=== PATIENT | female | born 1990 | race African-American/Black ===

== ENCOUNTER 2019-08-06 18:43 | Emergency (ER) | payer SELFPAY ==
[~2019-08-06] VITALS: Ht 170 cm; Wt 86.0 kg
--- NOTE | 2019-08-06 19:09 | NUR ---
Here with report of lower abdominal pain with intermittent bleeding. Was seen at the clinic on Monday c/o occasional dizziness. She reports heavy period in early June. She had positive test. taken to room 6
[2019-08-06 19:42] LABS: BILIRUBIN,URINE NEGATIVE (NEGATIVE); CLARITY,URINE CLEAR; COLOR,URINE YELLOW; GLUCOSE, URINE (UA) NEGATIVE (NEGATIVE); KETONES,URINE NEGATIVE (NEGATIVE); LEUKOCYTE ESTERASE ,URINE NEGATIVE (NEGATIVE); NITRITE,URINE NEGATIVE (NEGATIVE); PROTEIN,URINE NEGATIVE (NEGATIVE)
[2019-08-06 19:49] LABS: BACTERIA,URINE TRACE /HPF; RBC,URINE 0-2 /HPF
[2019-08-06 19:52] LABS: BASOPHILS % (AUTO) 0 % (0-10); EOSINOPHILS # (AUTO) 0.1 10^3/uL (0.0-0.3); EOSINOPHILS % (AUTO) 1 % (0-10); HEMATOCRIT 33 % (35-52); HEMOGLOBIN 10.8 G/DL (11.5-16.0); LYMPHOCYTES # (AUTO) 2.3 X 10^3 (1.0-4.0); LYMPHOCYTES % (AUTO) 25 % (12-44); MEAN CORPUSCULAR HEMOGLOBIN 28 PG (25-34); MEAN CORPUSCULAR HGB CONC 33 G/DL (32-36); MEAN CORPUSCULAR VOLUME 86 FL (80-99); MEAN PLATELET VOLUME 10.4 FL (7.4-10.4); MONOCYTES # (AUTO) 0.6 X 10^3 (0.0-1.0); MONOCYTES % (AUTO) 6 % (0-12); NEUTROPHILS # (AUTO) 6.3 X 10^3 (1.8-7.8); NEUTROPHILS % (AUTO) 67 % (42-75); PLATELET COUNT 273 10^3/uL (130-400); RED CELL DISTRIBUTION WIDTH 14.4 % (10.0-14.5); WHITE BLOOD COUNT 9.4 10^3/uL (4.3-11.0)
[2019-08-06 20:05] LABS: ALANINE AMINOTRANSFERASE 8 U/L (0-55); ALBUMIN 3.9 GM/DL (3.2-4.5); ALKALINE PHOSPHATASE 52 U/L (40-136); BILIRUBIN,TOTAL 0.2 MG/DL (0.1-1.0); BUN/CREATININE RATIO 17; CALCIUM 9.2 MG/DL (8.5-10.1); CARBON DIOXIDE 22 MMOL/L (21-32); CHLORIDE 105 MMOL/L (98-107); CREATININE SERUM 0.72 MG/DL (0.60-1.30); GFR ESTIMATED > 60; GLUCOSE 81 MG/DL (70-105); POTASSIUM 3.5 MMOL/L (3.6-5.0); SODIUM 136 MMOL/L (135-145); TOTAL PROTEIN 7.2 GM/DL (6.4-8.2)
[2019-08-06] MEDS ORDERED: LACTATED RINGERS 1,000 ML IV ONE (20:10)
--- NOTE | 2019-08-06 20:21 | ED GU-Female ---
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 LMP 07/03/2019. PT STATES HAS STARTED BLEEDING FOR A COUPLE DAYS. PT RATES PAIN 10/10 PAIN IN R LOWER ABD AND RECTAL AREA. CO OF NAUSEA. Nursing Sepsis Screen: No Definite Risk Source: patient Exam Limitations: no limitations History of Present Illness Date Seen by Provider: Aug 06, 2019 Time Seen by Provider: 19:55 Initial Comments Here with report of lower abdominal pain with intermittent bleeding. Was seen at the clinic on Monday and had vaginal ultrasound done after positive test. No structure noted and no ectopic noted at that time although they believe early for dates at that point. She's had intermittent dizziness over the last month. She did have extended and heavier period in early June. She had positive test at the end of June. She notes that she had dizziness that was actually occurring at the end of May and she didn't think much about that. Denies nausea or vomiting. Currently is hungry. Timing/Duration: week, getting worse Severity/Quality: mild, other Location: RLQ, suprapubic Radiation: back, right flank [facility] [place] History: less than 2 months ago Associated Symptoms: No dysuria, No fever/chills, No nausea/vomiting Allergies and Home Medications Allergies Coded Allergies: No Known Drug Allergies (Unverified , 08/06/19) Home Medications No Active Prescriptions or Reported Meds Patient Home Medication List Home Medication List Reviewed: Yes Review of Systems Review of Systems Constitutional: see HPI; No chills, No fever EENTM: no symptoms reported Respiratory: no symptoms reported Cardiovascular: no symptoms reported Gastrointestinal: abdominal pain; No nausea, No vomiting Genitourinary: no symptoms reported : Yes Musculoskeletal: no symptoms reported Psychiatric/Neurological: Denies Weakness; Other (dizziness) All Other Systemes Reviewed Negative Unless Noted: Yes Past Xnouwnl-Thjlld-Gfrofl Hx Past Med/Social Hx: Reviewed Nursing Past Med/Soc Hx Patient Social History Alcohol Use: Denies Use Recreational Drug Use: No Smoking Status: Never a Smoker Recent Foreign Travel: No Contact w/Someone Who Travel: No Recent Infectious Disease Expo: No Recent Hopitalizations: No Physical Abuse: No Sexual Abuse: No Seasonal Allergies Seasonal Allergies: No Past Medical History Surgeries: Yes (OVARIAN SURG) Respiratory: No Cardiac: No Neurological: No : Yes Last Menstrual Period: Jun 02, 2019 Hx : 2 Hx Para: 1 Hx Total # of Abortions (Sp): 0 Genitourinary: No Gastrointestinal: No Musculoskeletal: No Endocrine: No HEENT: No Cancer: No Psychosocial: No Family Medical History Reviewed Nursing Family Hx No Pertinent Family Hx Physical Exam Vital Signs Vital Signs - First Documented 08/06/19 18:52 Temp 36.5 Pulse 83 Resp 20 B/P (MAP) 150/97 (114) Capillary Refill : Less Than 3 Seconds Height, Weight, BMI Height: '" Weight: lbs. oz. kg; 29.00 BMI Method: General Appearance: WD/WN, no apparent distress Neck: full range of motion, supple Cardiovascular: regular rate, rhythm, no murmur Respiratory: lungs clear, normal breath sounds Gastrointestinal: soft, tenderness (mild suprapubic) Back: normal inspection, no CVA tenderness, no vertebral tenderness Extremities: non-tender, normal inspection Neurologic/Psychiatric: alert, oriented x 3 Skin: normal color, warm/dry Progress/Results/Core Measures Suspected Sepsis Recent Fever Within 48 Hours: No Infection Criteria Present: None New/Unexplained Altered Menta: No Sepsis Screen: No Definite Risk SIRS Temperature: Pulse: 83 Respiratory Rate: 20 Laboratory Tests 08/06/19 19:35: White Blood Count 9.4 Blood Pressure 150 /97 Mean: 114 Laboratory Tests 08/06/19 19:35: Creatinine 0.72, Platelet Count 273, Total Bilirubin 0.2 Results/Orders Lab Results Laboratory Tests Test 08/06/19 19:09 08/06/19 19:35 Range/Units Urine Color YELLOW Urine Clarity CLEAR Urine pH 7.0 5-9 Urine Specific Energy 1.020 1.016-1.022 Urine Protein NEGATIVE NEGATIVE Urine Glucose (UA) NEGATIVE NEGATIVE Urine Ketones NEGATIVE NEGATIVE Urine Nitrite NEGATIVE NEGATIVE Urine Bilirubin NEGATIVE NEGATIVE Urine Urobilinogen 0.2 < = 1.0 MG/DL Urine Leukocyte Esterase NEGATIVE NEGATIVE Urine RBC (Auto) TRACE-I NEGATIVE Urine RBC 0-2 /HPF Urine WBC NONE /HPF Urine Squamous Epithelial Cells 5-10 /HPF Urine Crystals NONE /LPF Urine Bacteria TRACE /HPF Urine Casts NONE /LPF Urine Mucus MODERATE H /LPF Urine Culture Indicated NO White Blood Count 9.4 4.3-11.0 10^3/uL Red Blood Count 3.80 L 4.35-5.85 10^6/uL Hemoglobin 10.8 L 11.5-16.0 G/DL Hematocrit 33 L 35-52 % Mean Corpuscular Volume 86 80-99 FL Mean Corpuscular Hemoglobin 28 25-34 PG Mean Corpuscular Hemoglobin Concent 33 32-36 G/DL Red Cell Distribution Width 14.4 10.0-14.5 % Platelet Count 273 130-400 10^3/uL Mean Platelet Volume 10.4 7.4-10.4 FL Neutrophils (%) (Auto) 67 42-75 % Lymphocytes (%) (Auto) 25 12-44 % Monocytes (%) (Auto) 6 0-12 % Eosinophils (%) (Auto) 1 0-10 % Basophils (%) (Auto) 0 0-10 % Neutrophils # (Auto) 6.3 1.8-7.8 X 10^3 Lymphocytes # (Auto) 2.3 1.0-4.0 X 10^3 Monocytes # (Auto) 0.6 0.0-1.0 X 10^3 Eosinophils # (Auto) 0.1 0.0-0.3 10^3/uL Basophils # (Auto) 0.0 0.0-0.1 10^3/uL Sodium Level 136 135-145 MMOL/L Potassium Level 3.5 L 3.6-5.0 MMOL/L Chloride Level 105 98-107 MMOL/L Carbon Dioxide Level 22 21-32 MMOL/L Anion Gap 9 5-14 MMOL/L Blood Urea Nitrogen 12 7-18 MG/DL Creatinine 0.72 0.60-1.30 MG/DL Estimat Glomerular Filtration Rate > 60 BUN/Creatinine Ratio 17 Glucose Level 81 70-105 MG/DL Calcium Level 9.2 8.5-10.1 MG/DL Corrected Calcium 9.3 8.5-10.1 MG/DL Total Bilirubin 0.2 0.1-1.0 MG/DL Aspartate Amino Transf (AST/SGOT) 13 5-34 U/L Alanine Aminotransferase (ALT/SGPT) 8 0-55 U/L Alkaline Phosphatase 52 40-136 U/L Total Protein 7.2 6.4-8.2 GM/DL Albumin 3.9 3.2-4.5 GM/DL Human Chorionic Gonadotropin, Quant [id number] H <5 MIU/ML My Orders Orders - TATY,NIK D MD Cbc With Automated Diff (08/06/19 19:35) Hcg,Quantitative (08/06/19 19:35) Ed Iv/Invasive Line Start (08/06/19 19:35) Comprehensive Metabolic Panel (08/06/19 19:35) Ua Culture If Indicated (08/06/19 19:35) Ed Iv/Invasive Line Start (08/06/19 20:10) Lactated Ringers (Lr 1000 Ml Iv Solution (08/06/19 20:10) Abo Rh Type (08/06/19 21:20) Medications Given in ED Current Medications Medications Dose Ordered Sig/Ervin Route Start Time Stop Time Status Last Admin Dose Admin Lactated Ringer's 1,000 ml @ 0 mls/hr Q0M ONCE IV 08/06/19 20:10 08/06/19 20:11 DC 08/06/19 20:35 1,000 MLS/HR Vital Signs/I&O 08/06/19 18:52 Temp 36.5 Pulse 83 Resp 20 B/P (MAP) 150/97 (114) Capillary Refill : Less Than 3 Seconds Blood Pressure Mean: 114 Progress Note : Progress Note Seen and evaluated. IV, labs and UA ordered. Bedside ultrasound done. I did not see an obvious pole but uterus was somewhat enlarged. Question enlarged structure on the right periuterine area. Pending quantitative hCG. 2105: Quantitative hCG greater than 65,000. I did discuss the case with Dr. Lara and we found that she is following with Dr. Kelley. I did call and make contact with him. I did discuss my concerns related to the ultrasound and hCG findings. He would like to see the patient in the office first thing in the morning where they will do transvaginal ultrasound. Patient is not in significant pain and in fact she is hungry currently. She did get 1 L of LR. She is not dizzy currently. I do believe she is safe to go home with close follow-up at this point with the understanding that she will return for any worsening. Patient agrees. Discharged home with return precautions. Patient verbalize understanding instructions and agreement with plan. Patient's blood type is O+. Departure Impression Primary Impression: Abdominal pain of right lower quadrant during , antepartum Additional Impression: Threatened miscarriage Disposition: HOME, SELF-CARE Condition: Stable Departure-Patient Inst. Decision time for Depature: 21:18 Referrals: NO,LOCAL PHYSICIAN (PCP) Primary Care Physician Patient Instructions: Acute Abdomen (Belly Pain), Adult (DC), Threatened Miscarriage (DC) Add. Discharge Instructions: All discharge instructions reviewed with patient and/or family. Voiced understanding. Follow-up at Dr. Kelley office in [place] between 0900 and 0930 in the [facility]. Return for worsening pain, worsening bleeding, weakness, breathing problems or other concerns as needed. Scripts No Active Prescriptions or Reported Meds Copy Copies To 1: GAYLE KELLEY TIMOTHY D MD Aug 06, 2019 20:21
[2019-08-06 21:58] VITALS: BP 152/114
--- OUTSIDE RECORDS SUMMARY | 2019-08-16 18:58 | XMS REPORT ---
Author Author Barb LAZAR [facility] Address [address] [place] [address] Care Team Providers Care Manager Reporting Name Role Phone RANULFO LAZAR Unavailable PROBLEMS Unknown Problems ALLERGIES No Information ENCOUNTERS Encounter Location Date Diagnosis [facility] [address] [id number] [place] [address] Dec, Encounter for Depo-Provera contraception Z30.42 [facility] [address] [id number] [place] [address] Dec, [facility] [address] [id number] [place] [address] Sep, Encounter for Depo-Provera contraception Z30.42 [facility] [address] [id number] [place] [address] Jul, Acute nonintractable headache, unspecifi ed headache type R51 ; Sore throat J02.9 ; Myalgia M79.1 and Nausea R11.0 [facility] [address] [id number] [place] [address] Jun, Negative test Z32.02 ; Encount er for contraceptive management, unspecified Z30.9 and Encounter for Depo-Provera contraception Z30.42 [facility] [address] [id number] [place] [address] Jun, [facility] [address] [id number] [place] [address] May, Negative test Z32.02 and Encou nter for other general counseling or advice on contraception Z30.09 IMMUNIZATIONS Vaccine Route Administration Date Status DEPO PROVERA (150 MG/ML) IM Intramuscular October 09, 2017 Admini stered SOCIAL HISTORY Never Assessed REASON FOR VISIT Depo Provera injection PLAN OF CARE VITAL SIGNS MEDICATIONS Unknown Medications RESULTS Name Result Date Reference Range TEST, URINE (IN HOUSE) 2017-10-09 RESULTS negative Lot # [id number] Control + Exp date 01/2019 PROCEDURES Procedure Date Ordered Result Body Site URINE TEST October 09, 2017 DEPO PROVERA (150 MG/ML) October 09, 2017 THER/PROPH/DIAG INJ, SC/IM October 09, 2017 INSTRUCTIONS MEDICATIONS ADMINISTERED No Known Medications MEDICAL (GENERAL) HISTORY Type Description Date Surgical History ovarian cyst removal Hospitalization History child Hospitalization History surgery
--- OUTSIDE RECORDS SUMMARY | 2019-08-16 18:58 | XMS REPORT | Continuity of Care Document ---
Author Organization Unknown Address Unknown Phone Unavailable Allergies Active Description Code Type Severity Reaction Onset Reported/Identified Relationship to Patient Clinical Status Yes No Known Drug Allergies [id number] Drug Allergy Unknown N/A 08/06/2019 Medications There is no data. Problems Date Dx Coded Attending Type Code Diagnosis Diagnosed By 08/16/2019 TATY LAYTON, NIK Rebolledo Ot O20.0 THREATENED 08/16/2019 NIK POSEY MD Ot R10.31 RIGHT LOWER QUADRANT PAIN 08/16/2019 NIK POSEY MD Ot Z3A.00 WEEKS OF GESTATION OF NOT SPEC Procedures There is no data. Results Test Result Range Complete urinalysis with reflex to cultu re - 08/06/19 19:09 Urine color determination YELLOW NRG Urine clarity determination CLEAR NR G Urine pH measurement by test strip 7.0 5-9 Specific gravity of urine by test strip 1.020 1.016-1.022 Urine protein assay by test strip, semi-quantitative NEGATIVE NEGATIVE Urine glucose detection by automated test strip NE GATIVE NEGATIVE Erythrocytes detection in urine sediment by light micr oscopy TRACE-I NEGATIVE Urine ketones detection by automated test strip NE GATIVE NEGATIVE Urine nitrite detection by test strip NEGATIVE NEGATIVE Urine total bilirubin detection by test strip NEGA TIVE NEGATIVE Urine urobilinogen measurement by automated test strip (mass/volume) 0.2 mg/dL < = 1.0 Urine leukocyte esterase detection by dipstick NEG ATIVE NEGATIVE Automated urine sediment erythrocyte cou nt by microscopy (number/high power field) [HPF] NRG Automated urine sediment leukocyte count by microscopy (number/high power field) NONE NRG Bacteria detection in urine sediment by light microsco py TRACE NRG Squamous epithelial cells detection in u rine sediment by light microscopy 5-10 NRG Crystals detection in urine sediment by light microsco py NONE NRG Casts detection in urine sediment by light microscopy NONE NRG Mucus detection in urine sediment by light microscopy MODERATE NRG Complete urinalysis with reflex to culture NO NRG Complete blood count (CBC) with automate d white blood cell (WBC) differential - 08/06/19 19:35 Blood leukocytes automated count (number/volume) 9.4 10*3/uL 4.3-11.0 Blood erythrocytes automated count (number/volume) 3.80 10*6/uL 4.35-5.85 Venous blood hemoglobin measurement (mass/volume) 10.8 g/dL 11.5-16.0 Blood hematocrit (volume fraction) 33 % 35-52 Automated erythrocyte mean corpuscular volume 86 [ foz_us] 80-99 Automated erythrocyte mean corpuscular h emoglobin (mass per erythrocyte) 28 pg 25-34 Automated erythrocyte mean corpuscular h emoglobin concentration measurement (mass/volume) 33 g/dL 32-36 Automated erythrocyte distribution width ratio 14. 4 % 10.0- 14.5 Automated blood platelet count (count/volume) 273 10*3/uL 130-400 Automated blood platelet mean volume measurement 10.4 [foz_us] 7.4-10.4 Automated blood neutrophils/100 leukocytes 67 % 42-75 Automated blood lymphocytes/100 leukocytes 25 % 12-44 Blood monocytes/100 leukocytes 6 % 0-12 Automated blood eosinophils/100 leukocytes 1 % 0-10 Automated blood basophils/100 leukocytes 0 % 0-10 Blood neutrophils automated count (number/volume) 6.3 10*3 1.8-7.8 Blood lymphocytes automated count (number/volume) 2.3 10*3 1.0-4.0 Blood monocytes automated count (number/volume) 0. 6 10*3 0.0-1.0 Automated eosinophil count 0.1 10*3/uL 0 .0-0.3 Automated blood basophil count (count/volume) 0.0 10*3/uL 0.0-0.1 Comprehensive metabolic panel - 08/06/19 19:35 Serum or plasma sodium measurement (moles/volume) 136 mmol/L 135-145 Serum or plasma potassium measurement (moles/volume) 3.5 mmol/L 3.6-5.0 Serum or plasma chloride measurement (moles/volume) 105 mmol/L 98-107 Carbon dioxide 22 mmol/L 21-32 Serum or plasma anion gap determination (moles/volume) 9 mmol/L 5-14 Serum or plasma urea nitrogen measurement (mass/volume ) 12 mg/dL 7-18 Serum or plasma creatinine measurement (mass/volume) 0.72 mg/dL 0.60-1.30 Serum or plasma urea nitrogen/creatinine mass ratio 17 NRG Serum or plasma creatinine measurement w ith calculation of estimated glomerular filtration rate > NRG Serum or plasma glucose measurement (mass/volume) 81 mg/dL 70-105 Serum or plasma calcium measurement (mass/volume) 9.2 mg/dL 8.5-10.1 Serum or plasma total bilirubin measurement (mass/volu me) 0.2 mg/dL 0.1-1.0 Serum or plasma alkaline phosphatase moira surement (enzymatic activity/volume) 52 U/L 40-136 Serum or plasma aspartate aminotransfera se measurement (enzymatic activity/volume) 13 U/L 5-34 Serum or plasma alanine aminotransferase measurement (enzymatic activity/volume) 8 U/L 0-55 Serum or plasma protein measurement (mass/volume) 7.2 g/dL 6.4-8.2 Serum or plasma albumin measurement (mass/volume) 3.9 g/dL 3.2-4.5 CALCIUM CORRECTED 9.3 mg/dL 8.5-10.1 Serum or plasma choriogonadotropin measu rement (units/volume) - 08/06/19 19:35 Serum or plasma choriogonadotropin measurement (units/ volume) 47515 m[iU]/mL <5 ABO+Rh group - 08/06/19 19:35 WRISTBAND NUMBER [id number] NRG ABO+Rh group OP NRG Encounters ACCT No. Visit Date/Time Discharge Status Pt. Type Provider Facility Loc./Unit Complaint [id number] 08/06/2019 18:47:00 020 22:01:00 DIS Outpatient TATY LAYTON, NIK Rebolledo [facility] PAIN IN LOWER A BD,BLEEDING, POSSIBLE MISCARRIAGE
--- OUTSIDE RECORDS SUMMARY | 2019-08-16 18:58 | XMS REPORT ---
Author Author Barb MORSE [facility] Address [address] [place] [address] Care Team Providers Care Fruit Trimmer Name Role Phone SORIN MORSE Unavailable PROBLEMS Unknown Problems ALLERGIES No Known Allergies ENCOUNTERS Encounter Location Date Diagnosis [facility] [address] [id number] [place] [address] Sep, Encounter for Depo-Provera contraception Z30.42 [facility] [place] [id number] [address] Jul, Acute nonintractable headache, unspecifi ed headache type R51 ; Sore throat J02.9 ; Myalgia M79.1 and Nausea R11.0 [facility] [place] [id number] [place] [address] Jun, Negative test Z32.02 ; Encount er for contraceptive management, unspecified Z30.9 and Encounter for Depo-Provera contraception Z30.42 [facility] [place] [id number] [place] [address] Jun, [facility] [id number] [place] [address] May, Negative test Z32.02 and Encou nter for other general counseling or advice on contraception Z30.09 IMMUNIZATIONS No Known Immunizations SOCIAL HISTORY Never Assessed REASON FOR VISIT Annual physical (female), Pt want to start control. MORGAN Nixon PLAN OF CARE Activity Details Follow Up prn Reason: VITAL SIGNS Height 67 in 2017-06-05 Weight 178.7 lbs 2017-06-05 Temperature 98.2 degrees Fahrenheit 2017-06-05 Heart Rate 94 bpm 2017-06-05 Respiratory Rate 18 2017-06-05 BMI 27.99 kg/m2 2017-06-05 Blood pressure systolic 140 mmHg 2017-06-05 Blood pressure diastolic 100 mmHg 2017-06-05 MEDICATIONS Medication Instructions Dosage Frequency Start Date End Date Duration S rosmery Tri-Sprintec 0.18/0.215/0.25 MG-35 MCG Orally Once a day 1 tablet 24h May, 28 day(s) Active RESULTS Name Result Date Reference Range TEST, URINE (IN HOUSE) 2017-06-05 RESULTS negative Lot # [id number] Control + Exp date 08/2018 PROCEDURES Procedure Date Ordered Result Body Site URINE TEST Jun 05, 2017 INSTRUCTIONS MEDICATIONS ADMINISTERED No Known Medications MEDICAL (GENERAL) HISTORY Type Description Date Surgical History ovarian cyst removal Hospitalization History child Hospitalization History surgery
--- OUTSIDE RECORDS SUMMARY | 2019-08-16 18:58 | XMS REPORT ---
Author Author Barb MORSE [facility] Address [address] [place] [address] Care Team Providers Care Corporation Officer Name Role Phone SORIN MORSE Unavailable PROBLEMS Unknown Problems ALLERGIES No Information ENCOUNTERS Encounter Location Date Diagnosis [facility] [address] [id number] [place] [address] Sep, Encounter for Depo-Provera contraception Z30.42 [facility] [place] [id number] [place] [address] Jul, Acute nonintractable headache, unspecifi ed headache type R51 ; Sore throat J02.9 ; Myalgia M79.1 and Nausea R11.0 [facility] [place] [id number] [place] [address] Jun, Negative test Z32.02 ; Encount er for contraceptive management, unspecified Z30.9 and Encounter for Depo-Provera contraception Z30.42 [facility] [place] [id number] [place] [address] Jun, [facility] [address] [id number] [place] [address] May, Negative test Z32.02 and Encou nter for other general counseling or advice on contraception Z30.09 IMMUNIZATIONS No Known Immunizations SOCIAL HISTORY Never Assessed REASON FOR VISIT Medication question PLAN OF CARE VITAL SIGNS MEDICATIONS Unknown Medications RESULTS No Results PROCEDURES No Known procedures INSTRUCTIONS MEDICATIONS ADMINISTERED No Known Medications MEDICAL (GENERAL) HISTORY Type Description Date Surgical History ovarian cyst removal Hospitalization History child Hospitalization History surgery
--- OUTSIDE RECORDS SUMMARY | 2019-08-16 18:58 | XMS REPORT ---
Author Author Barb BYERS [facility] Address [address] [place] [address] Care Team Providers Care Junior Account Executive Name Role Phone JORJE BYERS Unavailable PROBLEMS Unknown Problems ALLERGIES No Information ENCOUNTERS Encounter Location Date [email or web address] [address] [id number] [place] [address] Dec, Encounter for Depo-Provera contraception Z30.42 [facility] [address] [id number] [place] [address] Dec, [facility] [address] [id number] [place] [address] Sep, Encounter for Depo-Provera contraception Z30.42 [email or web address] [address] [id number] [place] [address] Jul, Acute nonintractable headache, unspecifi ed headache type R51 ; Sore throat J02.9 ; Myalgia M79.1 and Nausea R11.0 [facility] [address] [id number] [place] [address] Jun, Negative test Z32.02 ; Encount er for contraceptive management, unspecified Z30.9 and Encounter for Depo-Provera contraception Z30.42 [facility] [address] [id number] [place] [address] Jun, [facility] [id number] [place] [address] May, Negative test Z32.02 and Encou nter for other general counseling or advice on contraception Z30.09 IMMUNIZATIONS Vaccine Route Administration Date Status DEPO PROVERA (150 MG/ML) IM Intramuscular January 09, 2018 Admini stered SOCIAL HISTORY Never Assessed REASON FOR VISIT Depo Provera injection.MORGAN Huerta PLAN OF CARE VITAL SIGNS MEDICATIONS Unknown Medications RESULTS Name Result Date Reference Range TEST, URINE (IN HOUSE) 2018-01-09 RESULTS negative Lot # [id number] Control + Exp date 06/2019 PROCEDURES Procedure Date Ordered Result Body Site URINE TEST January 09, 2018 DEPO PROVERA (150 MG/ML) January 09, 2018 THER/PROPH/DIAG INJ, SC/IM January 09, 2018 INSTRUCTIONS MEDICATIONS ADMINISTERED No Known Medications MEDICAL (GENERAL) HISTORY Type Description Date Surgical History ovarian cyst removal Hospitalization History child Hospitalization History surgery
--- OUTSIDE RECORDS SUMMARY | 2019-08-16 18:58 | XMS REPORT ---
Author Author Barb BYERS [facility] Address [address] [place] [address] Care Team Providers Care Per Diem Rn Name Role Phone JORJE BYERS Unavailable PROBLEMS Unknown Problems ALLERGIES No Information ENCOUNTERS Encounter Location Date Diagnosis [facility] [id number] [place] [address] Dec, [facility]counter for [facility]-Prover[facility].42 [facility] [id number] [address] Dec, [facility] [id number] [place] [address] Sep, Encounter for [facility]o-Provera [facility] Z30.[facility] [id number] [place] [address] Jul, Acute nonintractable headache, unspecifi ed headache type R51 ; Sore throat J02.9 ; Myalgia M79.1 and Nausea R11.0 [facility] [id number] [place] [address] Jun, Negative test Z32.02 ; Encount er for contraceptive management, unspecified Z30.9 and Encounter for Depo-Provera contraception Z30.42 [facility] [id number] [place] [address] Jun, [facility] [id number] [address] May, Negative test Z32.02 and Encou nter for other general counseling or advice on contraception Z30.09 IMMUNIZATIONS No Known Immunizations SOCIAL HISTORY Never Assessed REASON FOR VISIT Depo Shot PLAN OF CARE VITAL SIGNS MEDICATIONS Unknown Medications RESULTS No Results PROCEDURES No Known procedures INSTRUCTIONS MEDICATIONS ADMINISTERED No Known Medications MEDICAL (GENERAL) HISTORY Type Description Date Surgical History ovarian cyst removal Hospitalization History child Hospitalization History surgery
== END 2019-08-06 22:01 | disposition home or self-care (01) ==
LOC: ER 18:47
DX: O20.0 Threatened abortion (principal); Z3A.00 Weeks of gestation of pregnancy not specified
CPT/HCPCS: 36415; 80053; 81000; 84702; 85025; 86900; 86901; 96360

== ENCOUNTER 2021-07-07 17:20 | Emergency (ER) | payer SELFPAY ==
[~2021-07-07] VITALS: Ht 170 cm; Wt 81.0 kg
[2021-07-07] MEDS ORDERED: LACTATED RINGERS 1,000 ML IV ONE (18:00)
--- NOTE | 2021-07-07 18:01 | ED General ---
General Chief Complaint: General Problems/Pain Stated Complaint: DIZZINESS,SYNCOPE Source of Information: Patient History of Present Illness Date Seen by Provider: Jul 07, 2021 Time Seen by Provider: 17:55 Initial Comments PT ARRIVES VIA POV STATES SHE BEGAN FEELING SICK LAST NIGHT C/O DIZZINESS AND PASSED OUT--NO INJURY C/O BODY ACHES C/O FATIGUE C/O HEADACHE + NAUSEA , NO VOMITING, NO DIARRHEA. HAS HAD LOSS OF APPETITE--ATE PART OF BAKED POTATO TODAY HAS HAD CHILLS, BUT NOT CHECKED TEMP C/O LOSS OF TASTE / SMELL NO COUGH/CONGESTION NO SORE THROAT NO SHORTNESS OF BREATH HAS NOT TAKEN ANYTHING FOR SYMPTOMS SON TESTED + FOR COVID ON Monday07/05/21 IS NOT ILL PT HAD ALVARADO AND ALVARADO COVID VACCINE IN APRIL, NO BOOSTER HAS HAD FLU VACCINE PT WORKS AT [employer] AT WORK WELL. HAS TESTED NEGATIVE FOR COVID-19 ON MONDAY AND MONDAY AT WORK. LMP--06/19/21. NORMAL. NO CONTROL PCP; NONE--HAS BEEN TO [facility] WHEN SHE HAD ECTOPIC , BUT OTHERWISE HAS NOT SEEN ANYONE SINCE THEN Allergies and Home Medications Allergies Coded Allergies: No Known Drug Allergies (Unverified , 08/06/19) Patient Home Medication List Home Medication List Reviewed: Yes Nitrofurantoin Monohyd/M-Cryst (Macrobid 100 mg Capsule) 100 Mg Capsule, 1 TAB PO BID Prescribed by: SUSAN ALFARO on 07/07/211903 Ondansetron (Ondansetron Odt) 8 Mg Tab.rapdis, 8 MG PO Q6H Prescribed by: SUSAN ALFARO on 07/07/211903 Review of Systems Review of Systems Constitutional: see HPI, dizziness, malaise, weakness EENTM: see HPI Respiratory: No cough, No short of breath Cardiovascular: No chest pain, No palpitations; syncope; No vascular heart diseas Gastrointestinal: see HPI; No abdominal pain, No diarrhea; loss of appetite, nausea; No vomiting Genitourinary: No decreased output Musculoskeletal: see HPI (BODY ACHES) Skin: no symptoms reported Psychiatric/Neurological: See HPI, Headache Hematologic/Lymphatic: No Symptoms Reported Immunological/Allergic: no symptoms reported Past Pbsilft-Hwswpq-Jypyzy Hx Patient Social History Tobacco Use?: No Substance use?: No Alcohol Use?: No Pt feels they are or have been: No Immunizations Up To Date Influenza Vaccine Up-to-Date: Yes; Up-to-Date First/Initial COVID19 Vaccinat: APR 2021 COVID19 Vaccine [employer]: [employer] Seasonal Allergies Seasonal Allergies: No Past Medical History Surgeries: Yes (RIGHT SALPINGECTOMY FOR ECTOPIC ) Respiratory: No Cardiac: No Neurological: No Reproductive Disorders: Yes (RIGHT ECTOPIC /SALPINGECTOMY) Genitourinary: No Gastrointestinal: No Musculoskeletal: No Endocrine: No HEENT: No Cancer: No Psychosocial: No Integumentary: No Blood Disorders: No Family Medical History No Pertinent Family Hx Physical Exam Vital Signs Vital Signs - First Documented 07/07/21 17:25 Temp 37.6 Pulse 104 Resp 17 B/P (MAP) 182/118 (139) Pulse Ox 99 O2 Delivery Room Air Capillary Refill : Height, Weight, BMI Height: '" Weight: lbs. oz. kg; 29.00 BMI Method: General Appearance: No Apparent Distress, WD/WN, Other (MOVES SLOWLY) HEENT: PERRL/EOMI Neck: Normal Inspection Respiratory: Normal Breath Sounds, No Accessory Muscle Use, No Respiratory Distress Cardiovascular: No Edema, No JVD, No Murmur, Normal Peripheral Pulses, Tachycardia Gastrointestinal: Non Tender, Soft Back: No CVA Tenderness Extremity: Normal Inspection Neurologic/Psychiatric: Alert, Oriented x3, No Motor/Sensory Deficits, research affiliate II- XII Norm as Tested Skin: Normal Color (PT IS BLACK), Warm/Dry Progress/Results/Core Measures Suspected Sepsis SIRS Temperature: Pulse: Respiratory Rate: Laboratory Tests 07/07/21 17:40: White Blood Count 5.8 Blood Pressure / Mean: Laboratory Tests 07/07/21 17:40: Creatinine 0.87, Platelet Count 296, Total Bilirubin 0.4 Results/Orders Lab Results Laboratory Tests Test 07/07/21 17:30 07/07/21 17:40 07/07/21 17:58 Range/Units Influenza Type A (RT-PCR) Not Detected Not Detecte Influenza Type B (RT-PCR) Not Detected Not Detecte SARS-CoV-2 RNA (RT-PCR) Detected H Not Detecte White Blood Count 5.8 4.3-11.0 10^3/uL Red Blood Count 4.08 3.80-5.11 10^6/uL Hemoglobin 11.6 11.5-16.0 g/dL Hematocrit 35 35-52 % Mean Corpuscular Volume 87 80-99 fL Mean Corpuscular Hemoglobin 28 25-34 pg Mean Corpuscular Hemoglobin Concent 33 32-36 g/dL Red Cell Distribution Width 14.7 H 10.0-14.5 % Platelet Count 296 130-400 10^3/uL Mean Platelet Volume 10.6 9.0-12.2 fL Immature Granulocyte % (Auto) 1 % Neutrophils (%) (Auto) 78 H 42-75 % Lymphocytes (%) (Auto) 8 L 12-44 % Monocytes (%) (Auto) 11 0-12 % Eosinophils (%) (Auto) 1 0-10 % Basophils (%) (Auto) 1 0-10 % Neutrophils # (Auto) 4.5 1.8-7.8 10^3/uL Lymphocytes # (Auto) 0.4 L 1.0-4.0 10^3/uL Monocytes # (Auto) 0.7 0.0-1.0 10^3/uL Eosinophils # (Auto) 0.1 0.0-0.3 10^3/uL Basophils # (Auto) 0.1 0.0-0.1 10^3/uL Immature Granulocyte # (Auto) 0.0 0.0-0.1 10^3/uL Neutrophils % (Manual) 79 % Lymphocytes % (Manual) 9 % Monocytes % (Manual) 10 % Eosinophils % (Manual) 2 % Blood Morphology Comment NORMAL Sodium Level 135 135-145 MMOL/L Potassium Level 4.1 3.6-5.0 MMOL/L Chloride Level 102 98-107 MMOL/L Carbon Dioxide Level 22 21-32 MMOL/L Anion Gap 11 5-14 MMOL/L Blood Urea Nitrogen 9 7-18 MG/DL Creatinine 0.87 0.60-1.30 MG/DL Estimat Glomerular Filtration Rate 91 BUN/Creatinine Ratio 10 Glucose Level 82 70-105 MG/DL Calcium Level 9.3 8.5-10.1 MG/DL Corrected Calcium 9.3 8.5-10.1 MG/DL Total Bilirubin 0.4 0.1-1.0 MG/DL Aspartate Amino Transf (AST/SGOT) 12 5-34 U/L Alanine Aminotransferase (ALT/SGPT) 11 0-55 U/L Alkaline Phosphatase 60 40-136 U/L Total Protein 7.9 6.4-8.2 GM/DL Albumin 4.0 3.2-4.5 GM/DL Serum Test, Qualitative NEGATIVE NEGATIVE Urine Color YELLOW Urine Clarity CLEAR Urine pH 8.0 5-9 Urine Specific [place] 1.020 1.016-1.022 Urine Protein NEGATIVE NEGATIVE Urine Glucose (UA) NEGATIVE NEGATIVE Urine Ketones NEGATIVE NEGATIVE Urine Nitrite NEGATIVE NEGATIVE Urine Bilirubin NEGATIVE NEGATIVE Urine Urobilinogen 0.2 < = 1.0 MG/DL Urine Leukocyte Esterase NEGATIVE NEGATIVE Urine RBC (Auto) NEGATIVE NEGATIVE Urine RBC RARE /HPF Urine WBC RARE /HPF Urine Squamous Epithelial Cells 5-10 /HPF Urine Crystals NONE /LPF Urine Bacteria MODERATE H /HPF Urine Casts NONE /LPF Urine Mucus SMALL H /LPF Urine Culture Indicated YES My Orders Orders - SUSAN ALFARO DO Ed Iv/Invasive Line Start (07/07/21 17:55) Monitor-Rhythm Ecg Trace Only (07/07/21 17:55) Cbc With Automated Diff (07/07/21 17:55) Comprehensive Metabolic Panel (07/07/21 17:55) Hcg,Qualitative Serum (07/07/21 17:55) Ua Culture If Indicated (07/07/21 17:55) Ed Iv/Invasive Line Start (07/07/21 17:55) Lactated Ringers (Lr 1000 Ml Iv Solution (07/07/21 18:00) Covid 19 Inhouse Test (07/07/21 17:55) Influenza A And B By Pcr (07/07/21 17:55) Isolation Central Supply Req (07/07/21 17:55) Manual Differential (07/07/21 17:40) Urine Culture (07/07/21 17:58) Ketorolac Injection (Toradol Injection) (07/07/21 18:45) Ondansetron Injection (Zofran Injectio (07/07/21 18:45) Medications Given in ED Current Medications Medications Dose Ordered Sig/Ervin Route Start Time Stop Time Status Last Admin Dose Admin Ketorolac Tromethamine 30 mg ONCE ONCE IVP 07/07/21 18:45 07/07/21 18:47 DC 07/07/21 19:02 30 MG Lactated Ringer's 1,000 ml @ 0 mls/hr Q0M ONCE IV 07/07/21 18:00 07/07/21 18:01 DC 07/07/21 18:12 1,000 MLS/HR Ondansetron HCl 4 mg ONCE ONCE IVP 07/07/21 18:45 07/07/21 18:47 DC 07/07/21 19:02 4 MG Vital Signs/I&O 07/07/21 07/07/21 17:25 19:15 Temp 37.6 37.6 Pulse 104 99 Resp 17 17 B/P (MAP) 182/118 (139) 167/115 Pulse Ox 99 99 O2 Delivery Room Air Room Air Capillary Refill : Progress Note : Progress Note PLACED IN ISOLATION ROOM PPE WORN AT ALL TIMES COVID AND FLU TESTING DONE GIVEN IV FLUIDS, TORADOL AND ZOFRAN HEART RATE DOWN NO HYPOTENSION NO HYPOXIA OR DYSPNEA NAUSEA IMPROVED, NO VOMITING OR DIARRHEA NO FEVER ANTICIPATED COURSE DISCUSSED, AND STRICT RETURN PRECAUTIONS ALSO DISCUSSED NEED FOR QUARANTINE MONOCLONAL ANTIBODIES ARE CURRENTLY UNAVAILABLE Departure Impression Primary Impression: COVID-19 virus infection Additional Impressions: Urinary tract infection Dehydration Disposition: 01 HOME, SELF-CARE Condition: Stable Departure-Patient Inst. Decision time for Depature: 19:00 Referrals: NO,LOCAL PHYSICIAN (PCP) Primary Care Physician [facility] Patient Instructions: COVID-19 (DC), Preventing the Spread of an Infectious Disease, Urinary Tract Infection, Adult (DC), Dehydration, Adult (DC) Add. Discharge Instructions: LOTS OF CLEAR LIQUIDS--WATER, BROTH, JELLO, GATORADE BRATS DIET--BANANAS, RICE, APPLESAUCE, TOAST, SALTINES TYLENOL AND MOTRIN NEEDED FOR PAIN OR FEVER QUARANTINE FOR 10 DAYS FOLLOW UP WITH [facility] NEEDED, RETURN TO ER IF WORSE All discharge instructions reviewed with patient and/or family. Voiced understanding. Scripts Nitrofurantoin Monohyd/M-Cryst (Macrobid 100 mg Capsule) 100 Mg Capsule 1 TAB PO BID, #20 CAP Prov: SUSAN ALFARO DO 07/07/21 Ondansetron (Ondansetron Odt) 8 Mg Tab.rapdis 8 MG PO Q6H, #10 TAB Prov: SUSAN ALFARO DO 07/07/21 Work/School Note: Work Release Form Date Seen in the Emergency Department: Jul 07, 2021 Return to Work: Jul 18, 2021 Restrictions: No Restrictions SUSAN ALFARO DO Jul 07, 2021 18:01
[2021-07-07 18:04] LABS: BASOPHILS # (AUTO) 0.1 10^3/uL (0.0-0.1); BASOPHILS % (AUTO) 1 % (0-10); EOSINOPHILS # (AUTO) 0.1 10^3/uL (0.0-0.3); EOSINOPHILS % (AUTO) 1 % (0-10); HEMATOCRIT 35 % (35-52); HEMOGLOBIN 11.6 g/dL (11.5-16.0); LYMPHOCYTES # (AUTO) 0.4 10^3/uL (1.0-4.0); LYMPHOCYTES % (AUTO) 8 % (12-44); MEAN CORPUSCULAR HEMOGLOBIN 28 pg (25-34); MEAN CORPUSCULAR HGB CONC 33 g/dL (32-36); MEAN CORPUSCULAR VOLUME 87 fL (80-99); MEAN PLATELET VOLUME 10.6 fL (9.0-12.2); MONOCYTES # (AUTO) 0.7 10^3/uL (0.0-1.0); MONOCYTES % (AUTO) 11 % (0-12); NEUTROPHILS # (AUTO) 4.5 10^3/uL (1.8-7.8); NEUTROPHILS % (AUTO) 78 % (42-75); PLATELET COUNT 296 10^3/uL (130-400); WHITE BLOOD COUNT 5.8 10^3/uL (4.3-11.0)
[2021-07-07 18:06] LABS: POTASSIUM 4.1 MMOL/L (3.6-5.0)
[2021-07-07 18:07] LABS: CALCIUM 9.3 MG/DL (8.5-10.1)
[2021-07-07 18:08] LABS: TOTAL PROTEIN 7.9 GM/DL (6.4-8.2)
[2021-07-07 18:09] LABS: BILIRUBIN,URINE NEGATIVE (NEGATIVE); CLARITY,URINE CLEAR; COLOR,URINE YELLOW; GLUCOSE, URINE (UA) NEGATIVE (NEGATIVE); KETONES,URINE NEGATIVE (NEGATIVE); LEUKOCYTE ESTERASE ,URINE NEGATIVE (NEGATIVE); NITRITE,URINE NEGATIVE (NEGATIVE); PROTEIN,URINE NEGATIVE (NEGATIVE)
[2021-07-07 18:10] LABS: BILIRUBIN,TOTAL 0.4 MG/DL (0.1-1.0)
[2021-07-07 18:12] LABS: CREATININE SERUM 0.87 MG/DL (0.60-1.30)
[2021-07-07 18:31] LABS: BACTERIA,URINE MODERATE /HPF; RBC,URINE RARE /HPF; WBC,URINE RARE /HPF
[2021-07-07] MEDS ORDERED: ONDANSETRON 4 MG/2 ML (SDV) Z0FRAN IVP ONE (18:45)
[2021-07-07] MEDS ORDERED: KETOROLAC 30 MG/ML VIAL IVP ONE (18:45)
[2021-07-07] MEDS ORDERED: NITR-65 PO (19:04)
[2021-07-07] MEDS ORDERED: ONDA8TAB13 PO (19:04)
[2021-07-07 19:08] LABS: EOSINOPHILS % (MANUAL) 2 %; LYMPHOCYTES % (MANUAL) 9 %; MONOCYTES % (MANUAL) 10 %; NEUTROPHILS % (MANUAL) 79 %; RBC MORPH NORMAL
[2021-07-07 19:15] VITALS: BP 167/115
== END 2021-07-07 19:15 | disposition home or self-care (01) ==
LOC: ER 17:20 → EDUNIT# 17:24 → ER 19:15
DX: U07.1 COVID-19 (principal); N39.0 Urinary tract infection, site not specified; E86.0 Dehydration
CPT/HCPCS: 36415; 80053; 81000; 84703; 85007; 85025; 85027; 87088; 87636; 93041; 96361; 96374; 96375